=== PATIENT | male | born 1955 | race Caucasian/White ===

== ENCOUNTER → 2018-03-07 | Outpatient (CLI) | payer BC | END | disposition home or self-care (01) | LOC: SHCH 07:46 | PROVIDERS: ATTEND Internal Medicine Cardiovascular Disease | DX: R01.1 Cardiac murmur, unspecified (principal); I11.0 Hypertensive heart disease with heart failure; I50.9 Heart failure, unspecified; I25.10 Atherosclerotic heart disease of native coronary artery without angina pectoris | CPT/HCPCS: 93306 ==

== ENCOUNTER → 2018-05-29 | Outpatient (CLI) | payer BC | END | disposition home or self-care (01) | LOC: SHCH 10:55 | PROVIDERS: ATTEND Internal Medicine Cardiovascular Disease | DX: R09.89 Other specified symptoms and signs involving the circulatory and respiratory systems (principal) | CPT/HCPCS: 93880 ==

== ENCOUNTER 2019-12-30 11:43 | Inpatient (IN) | payer BC ==
[~2019-12-30] VITALS: Ht 177.8 cm; Wt 80.3 kg
[2019-12-30 12:43] LABS: BASOPHILS % (AUTO) 0.4 % (0.0-5.0); EOSINOPHILS % (AUTO) 1.6 % (0.0-8.0); HEMATOCRIT 30.6 % (42-54); LYMPHOCYTES % (AUTO) 7.2 % (21.0-51.0); MEAN CORPUSCULAR HGB CONC 31.4 g/dL (32.0-36.0); MONOCYTES % (AUTO) 15.7 % (3.0-13.0); NEUTROPHILS % (AUTO) 74.7 % (40.0-77.0); PLATELET COUNT (AUTO) 411 K/uL (130-400); RED BLOOD CELL COUNT(AUTO) 3.56 MIL/uL (4.50-6.20); RED CELL DISTRIBUTION WIDTH 16.8 % (11.0-15.5); WHITE BLOOD COUNT (AUTO) 6.8 K/uL (4.8-10.8)
[2019-12-30 12:57] LABS: ALBUMIN 2.1 g/dL (3.5-5.0); BILIRUBIN,TOTAL 0.4 mg/dL (0.2-1.0); CREATININE 2.7 mg/dL (0.5-1.5); INR 1.04 (0.85-1.15); PARTIAL THROMBOPLASTIN TIME 33.8 SEC (26.3-35.5); POTASSIUM 4.4 mmol/L (3.5-5.1); PROTHROMBIN TIME 11.2 SEC (9.6-11.6); TOTAL PROTEIN, SERUM 9.1 g/dL (6.0-8.3)
--- NOTE | 2019-12-30 16:38 | NUR ---
DCP: HOME WITH Sw spoke to pt's Adrianne Franco [phone]. Per works at [employer], is independent, drives, uses CPAP at night, no in home care services. PCP is Dr Oliverio Marie, and he uses [facility] for rx medications. Plan is home at ma Addendum: 12/30/19 at 1640 by KEVIN ELLISON SS Amended: Links added.
[2019-12-30] MEDS ORDERED: ONDANSETRON HCL 4 MG/2 ML VIAL IVP PRN (17:00)
[2019-12-30] MEDS ORDERED: HYDRALAZINE HCL 20 MG/ML VIAL IV PRN (17:00)
[2019-12-30] MEDS ORDERED: ACETAMINOPHEN 325 MG TAB PO PRN ×2 (17:00)
[2019-12-30] MEDS: METHYLPREDNISOLONE SOD SUCC 40MG/ML 1ML IVP SCH (17:30)
[2019-12-30] MEDS: HEPARIN SODIUM 5000UNIT/ML 1ML VIAL SQ SCH (17:30)
[2019-12-30] MEDS ORDERED: HEPARIN SODIUM 5000UNIT/ML 1ML VIAL ONE (18:17)
[2019-12-30] MEDS ORDERED: METHYLPREDNISOLONE SOD SUCC 40MG/ML 1ML ONE (18:17)
[2019-12-30 22:14] LABS: B-TYPE NATRIURETIC PEPTIDE 23 pg/mL (0-100)
[2019-12-31] MEDS: METHYLPREDNISOLONE SOD SUCC 40MG/ML 1ML IVP SCH ×4 (01:30→19:17)
[2019-12-31] MEDS ORDERED: METHYLPREDNISOLONE SOD SUCC 40MG/ML 1ML ONE ×2 (01:59→10:26)
[2019-12-31] MEDS: HEPARIN SODIUM 5000UNIT/ML 1ML VIAL SQ SCH ×3 (05:30→19:18)
[2019-12-31] MEDS ORDERED: HEPARIN SODIUM 5000UNIT/ML 1ML VIAL ONE (05:58)
[2019-12-31 06:21] LABS: BASOPHILS % (AUTO) 0.1 % (0.0-5.0); HEMATOCRIT 32.6 % (42-54); LYMPHOCYTES % (AUTO) 9.5 % (21.0-51.0); MEAN CORPUSCULAR HEMOGLOBIN 27.2 pg (27.0-33.0); MEAN CORPUSCULAR HGB CONC 31.6 g/dL (32.0-36.0); MEAN CORPUSCULAR VOLUME 86.2 fL (79-99); MONOCYTES % (AUTO) 2.2 % (3.0-13.0); NEUTROPHILS % (AUTO) 87.6 % (40.0-77.0); PLATELET COUNT (AUTO) 343 K/uL (130-400); RED BLOOD CELL COUNT(AUTO) 3.78 MIL/uL (4.50-6.20); RED CELL DISTRIBUTION WIDTH 16.7 % (11.0-15.5); WHITE BLOOD COUNT (AUTO) 7.2 K/uL (4.8-10.8)
[2019-12-31 06:29] LABS: CREATININE 2.4 mg/dL (0.5-1.5); POTASSIUM 5.4 mmol/L (3.5-5.1)
[2019-12-31] MEDS ORDERED: ENOXAPARIN SODIUM 30 MG/0.3 ML SQ SCH (09:00)
[2019-12-31] MEDS ORDERED: ENOXAPARIN SODIUM 30 MG/0.3 ML SQ ONE (09:22)
[2019-12-31 11:39] VITALS: BP 146/68
[2019-12-31] MEDS ORDERED: DOXA8TAB81 PO (12:32)
[2019-12-31] MEDS ORDERED: ASCO100031 PO (12:32)
[2019-12-31] MEDS ORDERED: TEST200V21 IM (12:32)
[2019-12-31] MEDS ORDERED: TADA5TAB13 PO (12:32)
[2019-12-31] MEDS ORDERED: HYDR12.54 PO (12:32)
[2019-12-31] MEDS ORDERED: LOSA100T58 PO (12:32)
[2019-12-31] MEDS ORDERED: HYDR-4154 PO (12:32)
[2019-12-31 16:00] VITALS: BP 133/61
--- NOTE | 2019-12-31 17:15 | NUR ---
RETURNED TO ROOM VIA W/C FROM ID. DENIES ANY C/O AT THIS TIME.
--- NOTE | 2019-12-31 17:39 | NUR ---
PT. STATES GETS NON-STOP HICCUPS WITH STEROIDS. PREVIOUSLY PRESCRIBED AND HICCUPS OCCURRED; PRESCRIBING MD AT THE TIME ADVISED HIM TO STOP STEROIDS.
--- NOTE | 2019-12-31 18:45 | NUR ---
RECEIVED CALL FROM DR. COCHRAN, INFORMED OF BLE US RESULTS AND MADE AWARE PT. UNABLE TO TOLERATED VQ SCAN; VERBALIZED UNDERSTANDING AND ORDERS RECEIVED.
[2019-12-31 19:44] VITALS: BP 131/80
[2019-12-31 23:18] VITALS: BP 145/81
[2020-01-01] VITALS (12 sets, daily range): BP systolic 133–157; BP diastolic 64–86
[2020-01-01 05:33] LABS: CRP QUANTITATIVE 154.5 mg/L (0.00-9.0)
[2020-01-01 09:03] LABS: BASOPHILS % (AUTO) 0.2 % (0.0-5.0); EOSINOPHILS % (AUTO) 0.2 % (0.0-8.0); HEMATOCRIT 29.9 % (42-54); LYMPHOCYTES % (AUTO) 8.9 % (21.0-51.0); MEAN CORPUSCULAR HEMOGLOBIN 26.9 pg (27.0-33.0); MEAN CORPUSCULAR HGB CONC 31.4 g/dL (32.0-36.0); MEAN CORPUSCULAR VOLUME 85.7 fL (79-99); MONOCYTES % (AUTO) 8.7 % (3.0-13.0); NEUTROPHILS % (AUTO) 81.4 % (40.0-77.0); PLATELET COUNT (AUTO) 515 K/uL (130-400); RED BLOOD CELL COUNT(AUTO) 3.49 MIL/uL (4.50-6.20); WHITE BLOOD COUNT (AUTO) 12.1 K/uL (4.8-10.8)
[2020-01-01 09:18] LABS: CREATININE 2.2 mg/dL (0.5-1.5); POTASSIUM 4.4 mmol/L (3.5-5.1)
[2020-01-01] MEDS: METHYLPREDNISOLONE SOD SUCC 40MG/ML 1ML IVP SCH ×2 (09:30→17:24)
--- NOTE | 2020-01-01 09:50 | NUR ---
U/S GD LT THORACENTESIS PROCEDURE PERFORMED BY DR Sekou AWAD. PUNCTURE SITE LT POSTERIOR BACK AND PATIENT TOLERATED PROCEDURE WELL. TOTAL REMOVED 2 LITERS OF BLOOD TINGED FLUID. END OF PROCEDURE AT 0935. CATHETER REMOVED AND DRESSING APPLIED. NO BLEEDING NOTED. POST CHEST X-RAY TAKEN AND READ BY DR Sekou AWAD. NO PNEUMOTHORAX SEEN. REPORT GIVEN TO Paulette FERRO RN AND PATIENT TRANSPORTED TO [address] [place] [address] AW/C AT 0950. AAO X3 WITH NO C/O PAIN. SPECIMEN SENT TO LAB.
--- NOTE | 2020-01-01 15:01 | NUR ---
RD NOTIFICATION Pt admitted with Pleural Effusion. Pending thoracentesis at time of screen. Pt resting at time of visit. Pt with renal non-dialysis diet order in place. Compromised renal function. 1 Kidney status. Recommend Nepro QD, as medically feasible. RD to continue to monitor. Please notify RD as additional nutrition concerns arise. Thank you. Addendum: 01/01/20 at [address] RD Amended: Links added.
--- NOTE | 2020-01-01 17:24 | NUR ---
SPOKE WITH PATIENT ABOUT GIVING HIM THE SOLUMEDROL AND HE SAID HE WOULD PREFER NOT TO TAKE IT AT THIS TIME DUE TO SEVERE HICCUPS THAT DOESN'T ALLOW HIM TO REST. HE CONTINUES TO HICCUP BUT STATES THAT ITS NOT BAD SINCE THEY STOPPED GIVING IT TO HIM THIS MORNING. HE ASKED IF WE COULD RE-EVALUATE THE NEED FOR THIS MEDICATION HIS PRIMARY M.D. TOLD HIM NOT TO TAKE IT DUE TO HIS REACTION TO [facility]ETHYL[facility]. HAS HAD THIS REACTION BEFORE AND STATES THAT WHEN HE WENT FOR HIS CT SCAN, HE WAS ABLE TO LAY FLAT AND HAS BEEN BREATHING MUCH BETTER SINCE THEY THORACENTESIS AND THE REMOVAL OF 2 LITERS OF FLUID. WILL HOLD THE SOLUMEDROL FOR NOW AND WILL ASK M.D. IF WE CAN DISCONTINUE. Addendum: 01/01/20 at 1729 by SUKI ELENA RN RN Amended: Links added.
[2020-01-01] MEDS: HEPARIN SODIUM 5000UNIT/ML 1ML VIAL SQ SCH (18:35)
[2020-01-01 19:48] LABS: APPEARANCE BODY FLUID BLOODY (CLEAR); COLOR,BODY FLUID ORANGE (LT YELLOW); SPECIMENTYPE,BODY FLUID THORACENTESIS; TOTAL VOLUME,BODY FLUID 2000 mL
[2020-01-01 19:49] LABS: BODY FLUID WBC 694 /cu. mm.
[2020-01-01 19:50] LABS: BODY FLUID RBC 2525 /cu. mm.
[2020-01-01 20:29] LABS: BF EOSINOPHIL 1 %; BF LYMPHOCYTE 1 %; BF MONOCYTE 3 %
[2020-01-02] MEDS: METHYLPREDNISOLONE SOD SUCC 40MG/ML 1ML IVP SCH ×3 (01:14→17:30)
[2020-01-02 03:59] LABS: BASOPHILS % (AUTO) 0.5 % (0.0-5.0); EOSINOPHILS % (AUTO) 0.9 % (0.0-8.0); HEMATOCRIT 31.3 % (42-54); LYMPHOCYTES % (AUTO) 10.8 % (21.0-51.0); MEAN CORPUSCULAR HEMOGLOBIN 27.5 pg (27.0-33.0); MEAN CORPUSCULAR HGB CONC 31.6 g/dL (32.0-36.0); MEAN CORPUSCULAR VOLUME 86.9 fL (79-99); MONOCYTES % (AUTO) 12.5 % (3.0-13.0); NEUTROPHILS % (AUTO) 74.8 % (40.0-77.0); PLATELET COUNT (AUTO) 520 K/uL (130-400); RED CELL DISTRIBUTION WIDTH 16.9 % (11.0-15.5); WHITE BLOOD COUNT (AUTO) 7.5 K/uL (4.8-10.8)
[2020-01-02 04:00] VITALS: BP 154/82
[2020-01-02 04:14] LABS: POTASSIUM 4.9 mmol/L (3.5-5.1)
[2020-01-02 04:15] LABS: CREATININE 2.1 mg/dL (0.5-1.5)
[2020-01-02 04:34] LABS: CRP QUANTITATIVE 99.1 mg/L (0.00-9.0)
[2020-01-02] MEDS: HEPARIN SODIUM 5000UNIT/ML 1ML VIAL SQ SCH ×2 (06:18→17:30)
[2020-01-02 08:00] VITALS: BP 145/74
[2020-01-02 12:00] VITALS: BP 152/78
[2020-01-02] MEDS ORDERED: AMOX-426 PO (14:32)
[2020-01-02 16:00] VITALS: BP 145/78
== END 2020-01-02 20:00 | disposition home or self-care (01) | DRG 189 ==
LOC: EDH 11:43 → EDHIP 14:12 → 4AH 12-31 11:39
PROVIDERS: ADMIT Hospitalist; ATTEND Hospitalist
PROC: 0W9B3ZZ Drainage of Left Pleural Cavity, Percutaneous Approach (ICD-10-PCS; principal; 2020-01-01)
DX: J96.01 Acute respiratory failure with hypoxia (principal); E43 Unspecified severe protein-calorie malnutrition; J18.9 Pneumonia, unspecified organism; J90 Pleural effusion, not elsewhere classified; N17.9 Acute kidney failure, unspecified; J98.11 Atelectasis; I10 Essential (primary) hypertension; Z20.828 Contact with and (suspected) exposure to other viral communicable diseases; Z68.25 Body mass index [BMI] 25.0-25.9, adult
CPT/HCPCS: 32555; 36415; 71045; 71250; 78582; 80048; 80053; 82465; 82550; 82728; 82948; 83615; 83690; 83880; 84145; 84157; 84484; 85025; 85378; 85610; 85730; 86140; 87071; 87205; 87635; 89051; 93005; 93306; 93356; 93970; A9540; A9558; G0378; J1644; J1650; J2920

== ENCOUNTER 2020-08-02 13:25 | Inpatient (IN) | payer BC ==
[~2020-08-02] VITALS: Ht 177.8 cm; Wt 86.5 kg
[~2020-08-02 13:25] MED LIST: AMOX-426 PO; ASCO100031 PO; DOXA8TAB81 PO; HYDR-4154 PO; HYDR12.54 PO; LOSA100T58 PO; TADA5TAB13 PO; TEST200V21 IM
[2020-08-02 13:54] LABS: BASOPHILS % (AUTO) 0.4 % (0.0-5.0); EOSINOPHILS % (AUTO) 0.1 % (0.0-8.0); HEMATOCRIT 42.2 % (42-54); LYMPHOCYTES % (AUTO) 2.7 % (21.0-51.0); MEAN CORPUSCULAR HEMOGLOBIN 29.8 pg (27.0-33.0); MEAN CORPUSCULAR HGB CONC 32.7 g/dL (32.0-36.0); MEAN CORPUSCULAR VOLUME 91.1 fL (79-99); MONOCYTES % (AUTO) 13.4 % (3.0-13.0); PLATELET COUNT (AUTO) 237 K/uL (130-400); RED BLOOD CELL COUNT(AUTO) 4.63 MIL/uL (4.50-6.20); RED CELL DISTRIBUTION WIDTH 14.6 % (11.0-15.5); WHITE BLOOD COUNT (AUTO) 11.2 K/uL (4.8-10.8)
[2020-08-02 14:06] LABS: INR 1.26 (0.85-1.15); PROTHROMBIN TIME 13.2 SEC (9.6-11.6)
[2020-08-02 14:07] LABS: CREATININE 2.3 mg/dL (0.5-1.5); PARTIAL THROMBOPLASTIN TIME 31.9 SEC (26.3-35.5); POTASSIUM 3.5 mmol/L (3.5-5.1)
[2020-08-02 14:12] LABS: BILIRUBIN,TOTAL 1.5 mg/dL (0.2-1.0); TOTAL PROTEIN, SERUM 6.7 g/dL (6.0-8.3)
[2020-08-02] MEDS ORDERED: MORPHINE 2 MG SYG IVP PRN (16:30)
[2020-08-02] MEDS ORDERED: ONDANSETRON 4MG INJ ONE (16:39)
[2020-08-02] MEDS ORDERED: MORPHINE 2 MG SYG ONE (16:39)
[2020-08-02] MEDS ORDERED: LORAZEPAM 0.5 MG TABLET PO PRN (16:45)
[2020-08-02] MEDS ORDERED: ACETAMINOPHEN 325 MG TAB PO PRN (16:45)
[2020-08-02] MEDS ORDERED: HYDROMORPHONE 0.5 MG SYG (0.5MG/0.5ML) IVP PRN (16:45)
[2020-08-02] MEDS: HYDRALAZINE 25MG TABLET PO SCH ×2 (17:00→21:00)
[2020-08-02] MEDS ORDERED: METOCLOPRAMIDE 10 MG/2 ML VIAL IVP SCH (18:00)
[2020-08-02] MEDS ORDERED: DiphenhydrAMINE HCL 50 MG/ML VIAL IV SCH (18:00)
[2020-08-02] MEDS ORDERED: METOCLOPRAMIDE 10 MG/2 ML VIAL ONE (18:27)
[2020-08-02] MEDS ORDERED: DiphenhydrAMINE HCL 50 MG/ML VIAL ONE (18:27)
[2020-08-02] MEDS: DOXAZOSIN MESYLATE 2 MG TABLET PO SCH (21:00)
[2020-08-02] MEDS ORDERED: HYDRALAZINE 25MG TABLET ONE (21:01)
[2020-08-02] MEDS ORDERED: HYDROMORPHONE 0.5 MG SYG (0.5MG/0.5ML) ONE (22:13)
[2020-08-02 22:35] LABS: APPEARANCE,URINE Cloudy (CLEAR); BILIRUBIN,URINE Negative (NEGATIVE); COLOR,URINE Yellow (YELLOW); GLUCOSE, URINE (UA) Negative (NEGATIVE); KETONES,URINE Negative (NEGATIVE); LEUKOCYTE ESTERASE ,URINE Negative (NEGATIVE); NITRATE,URINE Negative (NEGATIVE); OCCULT BLOOD,URINE Negative (NEGATIVE); PROTEIN,URINE >=1000 mg/dL (NEGATIVE)
[2020-08-02 22:51] LABS: AMORPHOUS SEDIMENT,UR Many /LPF (None Seen); BACTERIA,URINE None Seen /HPF (None Seen); MUCUS,URINE Few LPF (None Seen); RBC,URINE None Seen /HPF (0-1); SQUAMOUS EPITHELIAL CELL,UR Few /HPF (0-2); WBC,URINE None Seen /HPF (0-1)
[2020-08-03] MEDS ORDERED: HYDROMORPHONE 0.5 MG SYG (0.5MG/0.5ML) ONE (03:11)
[2020-08-03 03:50] VITALS: BP 140/67
[2020-08-03 05:31] LABS: HEMATOCRIT 37.6 % (42-54); MEAN CORPUSCULAR HEMOGLOBIN 29.4 pg (27.0-33.0); MEAN CORPUSCULAR HGB CONC 32.2 g/dL (32.0-36.0); MEAN CORPUSCULAR VOLUME 91.3 fL (79-99); PLATELET COUNT (AUTO) 242 K/uL (130-400); RED BLOOD CELL COUNT(AUTO) 4.12 MIL/uL (4.50-6.20); RED CELL DISTRIBUTION WIDTH 14.6 % (11.0-15.5); WHITE BLOOD COUNT (AUTO) 9.2 K/uL (4.8-10.8)
[2020-08-03 06:06] LABS: CREATININE 2.7 mg/dL (0.5-1.5); MAGNESIUM 1.6 mg/dL (1.80-2.40); POTASSIUM 3.4 mmol/L (3.5-5.1); URIC ACID 5.9 mg/dL (2.6-7.2)
[2020-08-03 06:43] LABS: CRP QUANTITATIVE 215.8 mg/L (0.00-9.0)
[2020-08-03 06:58] LABS: BASOPHILS % (MANUAL) 1 % (0-2); EOSINOPHILS % (MANUAL) 1 % (1-6); LYMPHOCYTES % (MANUAL) 6 % (22-44); MAN.DIFF COMMENT-IMPRESSION MANUAL DIFFERENTIAL; MONOCYTES % (MANUAL) 12 % (2-9); PLATELET MORPHOLOGY COMMENT ADEQUATE; SEGMENTED NEUTROPHILS % 80 % (40-70)
[2020-08-03 07:30] VITALS: BP 137/68
[2020-08-03] MEDS ORDERED: IBRU420T PO (08:02)
[2020-08-03] MEDS ORDERED: DOXA8TAB81 PO (08:06)
[2020-08-03] MEDS ORDERED: LORA2ORA5 PO (08:06)
[2020-08-03] MEDS ORDERED: FURO20TA4 PO (08:06)
[2020-08-03] MEDS: CEFTRIAXONE 1G VIAL IVP SCH (09:18)
[2020-08-03] MEDS: HYDRALAZINE 25MG TABLET PO SCH ×3 (09:18→22:53)
[2020-08-03] MEDS: DOXYCYCLINE HYCLATE 100 MG TABLET PO SCH ×2 (09:18→22:53)
[2020-08-03] MEDS ORDERED: POTASSIUM CHLORIDE 10% ELIXIR 20 MEQ/15 ML UDCUP PO PRN (10:30)
[2020-08-03] MEDS ORDERED: LIDOCAINE HCL-MPF 1% 2ML VIAL IV PRN ×2 (10:30→12:15)
[2020-08-03] MEDS ORDERED: POTASSIUM CHLORIDE 20MEQ/100ML 100 ML IV PRN (10:30)
[2020-08-03] MEDS ORDERED: KCL 20 MEQ ERTAB PO PRN ×2 (10:30→12:15)
[2020-08-03] MEDS ORDERED: MAGNESIUM 2GM PREMIX 50ML 50 ML IV SCH (10:30)
[2020-08-03 11:00] VITALS: BP 121/67
[2020-08-03] MEDS ORDERED: HYDROMORPHONE 0.5 MG SYG (0.5MG/0.5ML) IVP PRN (12:00)
[2020-08-03] MEDS ORDERED: POTASSIUM CHLORIDE 10MEQ/100ML 100 ML IV PRN (12:15)
[2020-08-03] MEDS: POTASSIUM CHLORIDE 10% ELIXIR 20 MEQ/15 ML UDCUP PO PRN ×2 (13:32→17:36)
[2020-08-03] MEDS: LACTATED RINGERS 1000ML 1,000 ML IV SCH (13:35)
[2020-08-03 16:00] VITALS: BP 116/64
[2020-08-03] MEDS ORDERED: MORPHINE 2 MG SYG IVP PRN (16:45)
[2020-08-03 20:02] VITALS: BP 143/66
[2020-08-03] MEDS: DOXAZOSIN MESYLATE 2 MG TABLET PO SCH (22:53)
[2020-08-04 00:15] VITALS: BP 130/66
[2020-08-04] MEDS: LACTATED RINGERS 1000ML 1,000 ML IV SCH (04:09)
[2020-08-04 04:40] VITALS: BP 140/70
[2020-08-04 05:14] LABS: BASOPHILS % (AUTO) 0.4 % (0.0-5.0); EOSINOPHILS % (AUTO) 0.7 % (0.0-8.0); HEMATOCRIT 37.1 % (42-54); LYMPHOCYTES % (AUTO) 2.3 % (21.0-51.0); MEAN CORPUSCULAR HEMOGLOBIN 29.4 pg (27.0-33.0); MEAN CORPUSCULAR HGB CONC 32.6 g/dL (32.0-36.0); MONOCYTES % (AUTO) 21.3 % (3.0-13.0); NEUTROPHILS % (AUTO) 74.8 % (40.0-77.0); PLATELET COUNT (AUTO) 257 K/uL (130-400); RED BLOOD CELL COUNT(AUTO) 4.12 MIL/uL (4.50-6.20); RED CELL DISTRIBUTION WIDTH 14.2 % (11.0-15.5); WHITE BLOOD COUNT (AUTO) 8.4 K/uL (4.8-10.8)
[2020-08-04 05:42] LABS: CREATININE 2.5 mg/dL (0.5-1.5); MAGNESIUM 2.2 mg/dL (1.80-2.40); PHOSPHORUS 4.1 mg/dL (2.5-4.9); POTASSIUM 3.3 mmol/L (3.5-5.1)
[2020-08-04 05:44] LABS: INR 1.18 (0.85-1.15); PROTHROMBIN TIME 12.4 SEC (9.6-11.6)
[2020-08-04 05:45] LABS: PARTIAL THROMBOPLASTIN TIME 34.8 SEC (26.3-35.5)
[2020-08-04] MEDS: POTASSIUM CHLORIDE 10% ELIXIR 20 MEQ/15 ML UDCUP PO PRN (06:11)
[2020-08-04 08:00] VITALS: BP 143/77
[2020-08-04] MEDS ORDERED: VITAMIN D 1000 UNIT PO SCH (09:00)
[2020-08-04] MEDS: DOXYCYCLINE HYCLATE 100 MG TABLET PO SCH (11:42)
[2020-08-04] MEDS: CEFTRIAXONE 1G VIAL IVP SCH (11:42)
[2020-08-04] MEDS: HYDRALAZINE 25MG TABLET PO SCH ×2 (11:43→11:49)
[2020-08-04 12:00] VITALS: BP 138/60
[2020-08-04 13:23] LABS: APPEARANCE BODY FLUID BLOODY (CLEAR); COLOR,BODY FLUID RED (LT YELLOW); SPECIMENTYPE,BODY FLUID PLEURAL
[2020-08-04 13:24] LABS: TOTAL VOLUME,BODY FLUID 1021.5 mL
[2020-08-04 13:27] LABS: BODY FLUID WBC 375 /cu. mm.
[2020-08-04 13:28] LABS: BODY FLUID RBC 79500 /cu. mm.
[2020-08-04 13:37] LABS: BF LYMPHOCYTE 83 %; BF MONOCYTE 9 %
== END 2020-08-04 17:30 | disposition home or self-care (01) | DRG 103 ==
LOC: EDH 13:25 → EDHIP 16:27 → 4CH 08-03 03:22
PROVIDERS: ADMIT Internal Medicine; ATTEND Internal Medicine
PROC: 0W9B3ZZ Drainage of Left Pleural Cavity, Percutaneous Approach (ICD-10-PCS; principal; 2020-08-04)
DX: R51.9 Headache, unspecified (principal); N17.9 Acute kidney failure, unspecified; J90 Pleural effusion, not elsewhere classified; E87.1 Hypo-osmolality and hyponatremia; D84.821 Immunodeficiency due to drugs; E87.6 Hypokalemia; N18.9 Chronic kidney disease, unspecified; I16.0 Hypertensive urgency; C88.0 Waldenstrom macroglobulinemia; E78.5 Hyperlipidemia, unspecified; G62.9 Polyneuropathy, unspecified; I12.9 Hypertensive chronic kidney disease with stage 1 through stage 4 chronic kidney disease, or unspecified chronic kidney disease; M21.332 Wrist drop, left wrist; T45.1X5A Adverse effect of antineoplastic and immunosuppressive drugs, initial encounter; M21.331 Wrist drop, right wrist; F40.240 Claustrophobia; Z20.822 Contact with and (suspected) exposure to COVID-19; Z90.5 Acquired absence of kidney; Z92.21 Personal history of antineoplastic chemotherapy; Z82.49 Family history of ischemic heart disease and other diseases of the circulatory system; Z80.9 Family history of malignant neoplasm, unspecified; Y92.89 Other specified places as the place of occurrence of the external cause
CPT/HCPCS: 32554; 36415; 70450; 70551; 71045; 71250; 76770; 80048; 80053; 81001; 82306; 82550; 82945; 83605; 83615; 83735; 83986; 84100; 84145; 84157; 84484; 84550; 85025; 85610; 85651; 85730; 86140; 87040; 87071; 87116; 87205; 87206; 87426; 87804; 89051; 93005; 93306; 93356; C1729; G0378; J0696; J1170; J1200; J2405; J2765; J3475; J7120; U0003

== ENCOUNTER → 2020-08-14 | Outpatient (CLI) | payer BC ==
[~2020-08-14] MED LIST changes: -AMOX-426 PO; -ASCO100031 PO; -HYDR12.54 PO; +LORA2ORA5 PO; -LOSA100T58 PO; -TADA5TAB13 PO; -TEST200V21 IM
[2020-08-14 09:35] LABS: APPEARANCE,URINE Clear (CLEAR); BILIRUBIN,URINE Negative (NEGATIVE); COLOR,URINE Yellow (YELLOW); GLUCOSE, URINE (UA) TRACE mg/dL (NEGATIVE); KETONES,URINE Negative (NEGATIVE); LEUKOCYTE ESTERASE ,URINE Trace (NEGATIVE); NITRATE,URINE Negative (NEGATIVE); OCCULT BLOOD,URINE Negative (NEGATIVE); PROTEIN,URINE 300 mg/dL (NEGATIVE)
[2020-08-14 09:49] LABS: BACTERIA,URINE None Seen /HPF (None Seen); RBC,URINE 0-1 /HPF (0-1); SQUAMOUS EPITHELIAL CELL,UR 0-2 /HPF (0-2); WBC,URINE 0-1 /HPF (0-1)
== END | disposition home or self-care (01) ==
LOC: RAH 09:15
PROVIDERS: ATTEND Internal Medicine Critical Care Medicine
DX: K76.0 Fatty (change of) liver, not elsewhere classified (principal); R16.0 Hepatomegaly, not elsewhere classified; E88.09 Other disorders of plasma-protein metabolism, not elsewhere classified; N18.9 Chronic kidney disease, unspecified
CPT/HCPCS: 76700; 81001

== ENCOUNTER 2021-06-18 09:31 | Inpatient (IN) | payer BC ==
[~2021-06-18] VITALS: Ht 177.8 cm; Wt 72.6 kg
[2021-06-18 10:26] LABS: BASOPHILS % (AUTO) 0.5 % (0.0-5.0); EOSINOPHILS % (AUTO) 0.9 % (0.0-8.0); HEMATOCRIT 43.3 % (42-54); MEAN CORPUSCULAR HEMOGLOBIN 27.3 pg (27.0-33.0); MEAN CORPUSCULAR HGB CONC 30.7 g/dL (32.0-36.0); MEAN CORPUSCULAR VOLUME 88.7 fL (79-99); MONOCYTES % (AUTO) 9.3 % (3.0-13.0); NEUTROPHILS % (AUTO) 83.9 % (40.0-77.0); PLATELET COUNT (AUTO) 337 K/uL (130-400); RED BLOOD CELL COUNT(AUTO) 4.88 MIL/uL (4.50-6.20); RED CELL DISTRIBUTION WIDTH 16.3 % (11.0-15.5)
[2021-06-18] MEDS ORDERED: MORPHINE 4 MG SYG IVP ONE (10:30)
[2021-06-18] MEDS ORDERED: ONDANSETRON 4MG INJ IVP ONE (10:30)
[2021-06-18 10:39] LABS: CREATININE 1.4 mg/dL (0.5-1.5); POTASSIUM 4.5 mmol/L (3.5-5.1)
[2021-06-18 10:44] LABS: ALBUMIN 2.6 g/dL (3.5-5.0); BILIRUBIN,TOTAL 0.8 mg/dL (0.2-1.0)
[2021-06-18] MEDS ORDERED: 0.9%NACL 1000ML 1,000 ML IV ONE (12:00)
[2021-06-18] MEDS ORDERED: HYDRALAZINE 20MG/ML VIAL IV PRN (13:00)
[2021-06-18] MEDS ORDERED: ONDANSETRON 4MG INJ IV PRN (13:00)
[2021-06-18] MEDS ORDERED: ACETAMINOPHEN 325 MG TAB PO PRN ×2 (13:00)
[2021-06-18 13:22] LABS: APPEARANCE,URINE Clear (CLEAR); BILIRUBIN,URINE Negative (NEGATIVE); COLOR,URINE Dark Yellow (YELLOW); GLUCOSE, URINE (UA) Negative (NEGATIVE); KETONES,URINE Negative (NEGATIVE); LEUKOCYTE ESTERASE ,URINE Trace (NEGATIVE); NITRATE,URINE Negative (NEGATIVE); OCCULT BLOOD,URINE Negative (NEGATIVE); PROTEIN,URINE 300 mg/dL (NEGATIVE)
[2021-06-18 13:38] LABS: INR 1.06 (0.85-1.15); PROTHROMBIN TIME 11.5 SEC (9.6-11.6)
[2021-06-18 13:40] LABS: PARTIAL THROMBOPLASTIN TIME 32.7 SEC (26.3-35.5)
[2021-06-18 13:41] LABS: BACTERIA,URINE Few /HPF (None Seen); RBC,URINE None Seen /HPF (0-1); SQUAMOUS EPITHELIAL CELL,UR 0-2 /HPF (0-2); WBC,URINE 0-1 /HPF (0-1)
[2021-06-18] MEDS: 0.9%NACL 1000ML 1,000 ML IV SCH ×2 (14:47→21:42)
[2021-06-18] MEDS: ZOSYN 3.375GM+NS 50ML 50 ML IV SCH ×2 (15:10→21:42)
[2021-06-18] MEDS ORDERED: KETOROLAC 15MG/ML VIAL (15MG/ML) IV ONE (16:00)
[2021-06-18 20:39] VITALS: BP 147/85
[2021-06-18] MEDS: FAMOTIDINE 20MG VIAL IV SCH (21:42)
[2021-06-18] MEDS ORDERED: TEST100V11 IM (22:38)
[2021-06-18] MEDS ORDERED: POTA-10 PO (22:38)
[2021-06-18] MEDS ORDERED: HYDR-4153 PO (22:38)
[2021-06-18] MEDS ORDERED: DOXA8TAB81 PO (22:38)
[2021-06-18] MEDS ORDERED: TORS20TA4 PO (22:38)
[2021-06-18 23:51] VITALS: BP 133/76
[2021-06-19 03:54] VITALS: BP 137/81
[2021-06-19] MEDS: ZOSYN 3.375GM+NS 50ML 50 ML IV SCH ×3 (04:04→20:58)
[2021-06-19 06:26] LABS: BASOPHILS % (AUTO) 0.5 % (0.0-5.0); HEMATOCRIT 39.4 % (42-54); LYMPHOCYTES % (AUTO) 6.1 % (21.0-51.0); MEAN CORPUSCULAR HEMOGLOBIN 27.6 pg (27.0-33.0); MEAN CORPUSCULAR HGB CONC 30.7 g/dL (32.0-36.0); MONOCYTES % (AUTO) 8.6 % (3.0-13.0); NEUTROPHILS % (AUTO) 82.4 % (40.0-77.0); PLATELET COUNT (AUTO) 332 K/uL (130-400); RED BLOOD CELL COUNT(AUTO) 4.38 MIL/uL (4.50-6.20); RED CELL DISTRIBUTION WIDTH 16.6 % (11.0-15.5)
[2021-06-19 06:41] LABS: ALBUMIN 2.2 g/dL (3.5-5.0); BILIRUBIN,TOTAL 0.7 mg/dL (0.2-1.0); CREATININE 1.6 mg/dL (0.5-1.5); POTASSIUM 4.7 mmol/L (3.5-5.1); TOTAL PROTEIN, SERUM 7.1 g/dL (6.0-8.3)
[2021-06-19 07:00] VITALS: BP 151/77
[2021-06-19] MEDS: FAMOTIDINE 20MG VIAL IV SCH (08:55)
[2021-06-19] MEDS: 0.9%NACL 1000ML 1,000 ML IV SCH ×2 (08:55→20:58)
[2021-06-19 11:00] VITALS: BP 144/78
[2021-06-19] MEDS ORDERED: PANTOPRAZOLE 40 MG/VIAL IVP SCH (13:30)
[2021-06-19 16:00] VITALS: BP 144/77
[2021-06-19] MEDS: PANTOPRAZOLE 40 MG/VIAL IVP SCH ×2 (16:54→21:01)
[2021-06-19 19:15] VITALS: BP 147/84
[2021-06-19] MEDS ORDERED: 0.9%NACL 50ML 50 ML IV ONE (20:48)
[2021-06-19 23:42] VITALS: BP 146/78
[2021-06-20 03:55] VITALS: BP 150/79
[2021-06-20] MEDS: 0.9%NACL 1000ML 1,000 ML IV SCH ×2 (05:36→17:04)
[2021-06-20] MEDS: ZOSYN 3.375GM+NS 50ML 50 ML IV SCH ×3 (05:36→21:25)
[2021-06-20 06:41] LABS: BASOPHILS % (AUTO) 0.8 % (0.0-5.0); HEMATOCRIT 40.7 % (42-54); LYMPHOCYTES % (AUTO) 6.2 % (21.0-51.0); MEAN CORPUSCULAR HEMOGLOBIN 27.4 pg (27.0-33.0); MEAN CORPUSCULAR HGB CONC 29.7 g/dL (32.0-36.0); MEAN CORPUSCULAR VOLUME 92.1 fL (79-99); MONOCYTES % (AUTO) 8.8 % (3.0-13.0); PLATELET COUNT (AUTO) 311 K/uL (130-400); RED BLOOD CELL COUNT(AUTO) 4.42 MIL/uL (4.50-6.20); RED CELL DISTRIBUTION WIDTH 16.4 % (11.0-15.5); WHITE BLOOD COUNT (AUTO) 8.6 K/uL (4.8-10.8)
[2021-06-20 06:51] LABS: CREATININE 1.7 mg/dL (0.5-1.5); POTASSIUM 4.5 mmol/L (3.5-5.1)
[2021-06-20 08:00] VITALS: BP 139/75
[2021-06-20] MEDS: PANTOPRAZOLE 40 MG/VIAL IVP SCH ×2 (08:52→21:25)
[2021-06-20 11:00] VITALS: BP 149/83
[2021-06-20] MEDS ORDERED: 0.9%NACL 50ML 50 ML IV ONE (12:47)
[2021-06-20] MEDS: LACTULOSE 20 GM/30 ML UDCUP ONE ×2 (13:55→14:00)
[2021-06-20] MEDS ORDERED: BISACODYL 10 MG SUPP.RECT RC ONE (14:00)
[2021-06-20] MEDS: LACTULOSE 20 GM/30 ML UDCUP PO SCH ×2 (14:30→21:25)
[2021-06-20 16:00] VITALS: BP 136/79
[2021-06-20 19:17] VITALS: BP 143/88
[2021-06-20] MEDS ORDERED: LACTULOSE 20 GM/30 ML UDCUP PO SCH (21:00)
[2021-06-20 23:51] VITALS: BP 132/88
[2021-06-21 03:51] VITALS: BP 147/86
[2021-06-21] MEDS: ZOSYN 3.375GM+NS 50ML 50 ML IV SCH ×3 (05:26→21:22)
[2021-06-21 06:17] LABS: BASOPHILS % (AUTO) 0.8 % (0.0-5.0); EOSINOPHILS % (AUTO) 2.9 % (0.0-8.0); LYMPHOCYTES % (AUTO) 5.3 % (21.0-51.0); MEAN CORPUSCULAR HEMOGLOBIN 27.4 pg (27.0-33.0); MEAN CORPUSCULAR VOLUME 88.3 fL (79-99); MONOCYTES % (AUTO) 10.1 % (3.0-13.0); NEUTROPHILS % (AUTO) 80.6 % (40.0-77.0); PLATELET COUNT (AUTO) 348 K/uL (130-400); RED BLOOD CELL COUNT(AUTO) 4.53 MIL/uL (4.50-6.20); RED CELL DISTRIBUTION WIDTH 16.1 % (11.0-15.5); WHITE BLOOD COUNT (AUTO) 8.7 K/uL (4.8-10.8)
[2021-06-21 06:49] LABS: CREATININE 1.7 mg/dL (0.5-1.5)
[2021-06-21 08:00] VITALS: BP 138/67
[2021-06-21] MEDS: PANTOPRAZOLE 40 MG/VIAL IVP SCH ×2 (09:00→21:22)
[2021-06-21] MEDS: LACTULOSE 20 GM/30 ML UDCUP PO SCH ×3 (10:43→21:22)
[2021-06-21 12:00] VITALS: BP 152/81
[2021-06-21] MEDS: 0.9%NACL 1000ML 1,000 ML IV SCH (13:16)
[2021-06-21 16:00] VITALS: BP 153/85
[2021-06-21] MEDS ORDERED: 0.9%NACL 50ML 50 ML IV ONE (20:16)
[2021-06-21 20:51] VITALS: BP 161/91
[2021-06-21] MEDS: HYDRALAZINE 25MG TABLET PO SCH (21:22)
[2021-06-21 23:45] VITALS: BP 149/89
[2021-06-22] MEDS ORDERED: 0.9%NACL 50ML 50 ML IV ONE (04:52)
[2021-06-22] MEDS: ZOSYN 3.375GM+NS 50ML 50 ML IV SCH ×3 (05:27→21:20)
[2021-06-22 05:35] VITALS: BP 158/90
[2021-06-22 06:01] LABS: BASOPHILS % (AUTO) 0.9 % (0.0-5.0); HEMATOCRIT 44.9 % (42-54); LYMPHOCYTES % (AUTO) 7.4 % (21.0-51.0); MEAN CORPUSCULAR HEMOGLOBIN 27.5 pg (27.0-33.0); MEAN CORPUSCULAR VOLUME 88.9 fL (79-99); MONOCYTES % (AUTO) 10.5 % (3.0-13.0); NEUTROPHILS % (AUTO) 77.7 % (40.0-77.0); PLATELET COUNT (AUTO) 358 K/uL (130-400); RED BLOOD CELL COUNT(AUTO) 5.05 MIL/uL (4.50-6.20); RED CELL DISTRIBUTION WIDTH 15.9 % (11.0-15.5); WHITE BLOOD COUNT (AUTO) 8.5 K/uL (4.8-10.8)
[2021-06-22 06:15] LABS: CREATININE 1.8 mg/dL (0.5-1.5); MAGNESIUM 2.1 mg/dL (1.80-2.40); PHOSPHORUS 3.4 mg/dL (2.5-4.9); POTASSIUM 4.1 mmol/L (3.5-5.1)
[2021-06-22 08:00] VITALS: BP 143/79
[2021-06-22] MEDS: HYDRALAZINE 25MG TABLET PO SCH ×2 (08:36→21:20)
[2021-06-22] MEDS: PANTOPRAZOLE 40 MG/VIAL IVP SCH ×2 (08:36→21:20)
[2021-06-22] MEDS: LACTULOSE 20 GM/30 ML UDCUP PO SCH ×2 (08:46→21:00)
[2021-06-22 12:01] VITALS: BP 139/80
[2021-06-22 16:00] VITALS: BP 129/77
[2021-06-22 20:28] VITALS: BP 136/79
[2021-06-23 00:28] VITALS: BP 135/83
[2021-06-23 04:28] VITALS: BP 155/88
[2021-06-23 04:49] LABS: BASOPHILS % (AUTO) 0.7 % (0.0-5.0); EOSINOPHILS % (AUTO) 2.5 % (0.0-8.0); HEMATOCRIT 39.6 % (42-54); MEAN CORPUSCULAR HEMOGLOBIN 27.8 pg (27.0-33.0); MEAN CORPUSCULAR HGB CONC 31.8 g/dL (32.0-36.0); MEAN CORPUSCULAR VOLUME 87.2 fL (79-99); MONOCYTES % (AUTO) 13.6 % (3.0-13.0); NEUTROPHILS % (AUTO) 75.8 % (40.0-77.0); PLATELET COUNT (AUTO) 334 K/uL (130-400); RED BLOOD CELL COUNT(AUTO) 4.54 MIL/uL (4.50-6.20); WHITE BLOOD COUNT (AUTO) 7.7 K/uL (4.8-10.8)
[2021-06-23] MEDS: ZOSYN 3.375GM+NS 50ML 50 ML IV SCH ×3 (04:54→21:39)
[2021-06-23 05:02] LABS: CREATININE 1.6 mg/dL (0.5-1.5)
[2021-06-23 08:00] VITALS: BP 155/88
[2021-06-23] MEDS: PANTOPRAZOLE 40 MG/VIAL IVP SCH ×2 (09:36→21:39)
[2021-06-23] MEDS: HYDRALAZINE 25MG TABLET PO SCH ×2 (09:37→21:39)
[2021-06-23] MEDS: LACTULOSE 20 GM/30 ML UDCUP PO SCH ×2 (09:37→21:38)
[2021-06-23 12:00] VITALS: BP 152/87
[2021-06-23 16:00] VITALS: BP 146/83
[2021-06-23 20:00] VITALS: BP 139/76
[2021-06-24] VITALS (7 sets, daily range): BP systolic 135–158; BP diastolic 64–80
[2021-06-24 03:38] LABS: LYMPHOCYTES % (AUTO) 8.6 % (21.0-51.0); MEAN CORPUSCULAR HEMOGLOBIN 27.8 pg (27.0-33.0); MEAN CORPUSCULAR VOLUME 89.7 fL (79-99); MONOCYTES % (AUTO) 13.3 % (3.0-13.0); PLATELET COUNT (AUTO) 265 K/uL (130-400); RED BLOOD CELL COUNT(AUTO) 4.35 MIL/uL (4.50-6.20); WHITE BLOOD COUNT (AUTO) 6.9 K/uL (4.8-10.8)
[2021-06-24 03:48] LABS: CREATININE 1.6 mg/dL (0.5-1.5); POTASSIUM 3.8 mmol/L (3.5-5.1)
[2021-06-24] MEDS: ZOSYN 3.375GM+NS 50ML 50 ML IV SCH ×2 (05:56→20:58)
[2021-06-24] MEDS: LACTULOSE 20 GM/30 ML UDCUP PO SCH ×2 (10:57→20:58)
[2021-06-24] MEDS: HYDRALAZINE 25MG TABLET PO SCH ×2 (10:58→20:59)
[2021-06-24] MEDS: PANTOPRAZOLE 40 MG/VIAL IVP SCH ×2 (10:58→20:59)
[2021-06-25 04:00] VITALS: BP 140/69
[2021-06-25] MEDS: ZOSYN 3.375GM+NS 50ML 50 ML IV SCH (04:42)
[2021-06-25 07:34] VITALS: BP 150/82
[2021-06-25] MEDS: LACTULOSE 20 GM/30 ML UDCUP PO SCH ×2 (10:16→21:35)
[2021-06-25] MEDS: PANTOPRAZOLE 40 MG/VIAL IVP SCH ×2 (10:16→21:35)
[2021-06-25] MEDS: HYDRALAZINE 25MG TABLET PO SCH ×2 (10:16→21:35)
[2021-06-25 11:52] VITALS: BP 147/79
[2021-06-25 16:08] VITALS: BP 164/83
[2021-06-25 19:00] VITALS: BP 150/62
[2021-06-26] VITALS: BP 162/78
[2021-06-26 04:00] VITALS: BP 147/87
[2021-06-26 07:54] VITALS: BP 171/81
[2021-06-26] MEDS: HYDRALAZINE 25MG TABLET PO SCH ×2 (08:34→21:07)
[2021-06-26] MEDS: PANTOPRAZOLE 40 MG/VIAL IVP SCH ×2 (08:34→21:07)
[2021-06-26] MEDS: LACTULOSE 20 GM/30 ML UDCUP PO SCH ×2 (08:38→21:08)
[2021-06-26] MEDS ORDERED: CLONAZEPAM 1MG TAB PO SCH (11:30)
[2021-06-26] MEDS ORDERED: FUROSEMIDE 40MG VIAL IV SCH (11:30)
[2021-06-26] MEDS ORDERED: LORAZEPAM 1 MG TABLET PO SCH (11:37)
[2021-06-26 12:13] VITALS: BP 141/75
[2021-06-26] MEDS ORDERED: LORAZEPAM 1 MG TABLET PO PRN (15:00)
[2021-06-26 16:00] VITALS: BP 156/81
[2021-06-26 19:00] VITALS: BP 155/77
[2021-06-27] VITALS (8 sets, daily range): BP systolic 123–161; BP diastolic 68–94
[2021-06-27 05:12] LABS: BASOPHILS % (AUTO) 0.9 % (0.0-5.0); EOSINOPHILS % (AUTO) 2.9 % (0.0-8.0); HEMATOCRIT 40.6 % (42-54); MEAN CORPUSCULAR HEMOGLOBIN 27.1 pg (27.0-33.0); MEAN CORPUSCULAR HGB CONC 30.5 g/dL (32.0-36.0); MEAN CORPUSCULAR VOLUME 88.6 fL (79-99); MONOCYTES % (AUTO) 13.6 % (3.0-13.0); NEUTROPHILS % (AUTO) 74.4 % (40.0-77.0); PLATELET COUNT (AUTO) 346 K/uL (130-400); RED BLOOD CELL COUNT(AUTO) 4.58 MIL/uL (4.50-6.20); RED CELL DISTRIBUTION WIDTH 16.2 % (11.0-15.5); WHITE BLOOD COUNT (AUTO) 6.5 K/uL (4.8-10.8)
[2021-06-27 05:19] LABS: CREATININE 1.4 mg/dL (0.5-1.5); POTASSIUM 3.8 mmol/L (3.5-5.1)
[2021-06-27 05:41] LABS: B-TYPE NATRIURETIC PEPTIDE 1310 pg/mL (0-100)
[2021-06-27] MEDS: LACTULOSE 20 GM/30 ML UDCUP PO SCH ×2 (09:00→20:38)
[2021-06-27] MEDS: HYDRALAZINE 25MG TABLET PO SCH ×2 (09:50→20:37)
[2021-06-27] MEDS: PANTOPRAZOLE 40 MG/VIAL IVP SCH ×2 (09:50→20:36)
[2021-06-27] MEDS ORDERED: LORAZEPAM 1 MG TABLET PO PRN (10:30)
[2021-06-27] MEDS ORDERED: CLONAZEPAM 1MG TAB PO PRN (10:30)
[2021-06-27 12:50] LABS: ALBUMIN,BODY FLUID 1.7 g/dL; GLUCOSE,BODY FLUID 99 mg/dL (1-40)
[2021-06-27 14:14] LABS: APPEARANCE BODY FLUID SLIGHTLY CLOUDY (CLEAR); BODY FLUID RBC 475 /cu. mm.; BODY FLUID WBC 267 /cu. mm.; COLOR,BODY FLUID YELLOW (LT YELLOW); SPECIMENTYPE,BODY FLUID THORACENTESIS; TOTAL VOLUME,BODY FLUID 1800 mL
[2021-06-27 14:32] LABS: BF EOSINOPHIL 31 %; BF LYMPHOCYTE 54 %; BF MONOCYTE 9 %
[2021-06-27 14:35] LABS: PH, BODY FLUID 8
[2021-06-28 04:16] VITALS: BP 142/79
[2021-06-28 04:34] LABS: BASOPHILS % (AUTO) 1.3 % (0.0-5.0); EOSINOPHILS % (AUTO) 3.4 % (0.0-8.0); HEMATOCRIT 37.8 % (42-54); LYMPHOCYTES % (AUTO) 9.2 % (21.0-51.0); MEAN CORPUSCULAR HEMOGLOBIN 27.4 pg (27.0-33.0); MEAN CORPUSCULAR HGB CONC 31.2 g/dL (32.0-36.0); MEAN CORPUSCULAR VOLUME 87.9 fL (79-99); MONOCYTES % (AUTO) 16.1 % (3.0-13.0); NEUTROPHILS % (AUTO) 69.4 % (40.0-77.0); PLATELET COUNT (AUTO) 327 K/uL (130-400); RED CELL DISTRIBUTION WIDTH 16.1 % (11.0-15.5); WHITE BLOOD COUNT (AUTO) 7.2 K/uL (4.8-10.8)
[2021-06-28 04:57] LABS: ALBUMIN 1.9 g/dL (3.5-5.0); BILIRUBIN,TOTAL 0.5 mg/dL (0.2-1.0); CREATININE 1.4 mg/dL (0.5-1.5); TOTAL PROTEIN, SERUM 6.6 g/dL (6.0-8.3)
[2021-06-28 07:40] VITALS: BP 147/93
[2021-06-28] MEDS: PANTOPRAZOLE 40 MG/VIAL IVP SCH (08:47)
[2021-06-28] MEDS: HYDRALAZINE 25MG TABLET PO SCH (08:48)
[2021-06-28] MEDS: LACTULOSE 20 GM/30 ML UDCUP PO SCH (09:00)
[2021-06-28 11:40] VITALS: BP 159/89
[2021-06-28 15:40] VITALS: BP 157/83
[2021-06-28] MEDS ORDERED: LACT10SO9 PO (15:44)
[2021-06-28 16:55] VITALS: BP 132/79
[2021-06-28] MEDS ORDERED: DOXAZOSIN MESYLATE 2 MG TABLET PO SCH (16:55)
== END 2021-06-28 17:30 | disposition home or self-care (01) | DRG 388 ==
LOC: EDH 09:31 → EDHIP 12:41 → 2AH 20:38 → 3DH 06-22 05:31
PROVIDERS: ADMIT Internal Medicine; ATTEND Internal Medicine
PROC: 0D9670Z Drainage of Stomach with Drainage Device, Via Natural or Artificial Opening (ICD-10-PCS; principal; 2021-06-21)
PROC: 5A09357 Assistance with Respiratory Ventilation, Less than 24 Consecutive Hours, Continuous Positive Airway Pressure (ICD-10-PCS; 2021-06-26)
PROC: 0W993ZZ Drainage of Right Pleural Cavity, Percutaneous Approach (ICD-10-PCS; 2021-06-27)
DX: K56.609 Unspecified intestinal obstruction, unspecified as to partial versus complete obstruction (principal); E43 Unspecified severe protein-calorie malnutrition; J94.8 Other specified pleural conditions; C85.90 Non-Hodgkin lymphoma, unspecified, unspecified site; N18.30 Chronic kidney disease, stage 3 unspecified; I12.9 Hypertensive chronic kidney disease with stage 1 through stage 4 chronic kidney disease, or unspecified chronic kidney disease; Z68.23 Body mass index [BMI] 23.0-23.9, adult; I27.20 Pulmonary hypertension, unspecified; Z20.822 Contact with and (suspected) exposure to COVID-19; G62.9 Polyneuropathy, unspecified; I07.1 Rheumatic tricuspid insufficiency; Z90.5 Acquired absence of kidney; Z88.8 Allergy status to other drugs, medicaments and biological substances; Z85.79 Personal history of other malignant neoplasms of lymphoid, hematopoietic and related tissues; Z80.9 Family history of malignant neoplasm, unspecified; Z82.49 Family history of ischemic heart disease and other diseases of the circulatory system
CPT/HCPCS: 36415; 71045; 71046; 74018; 74021; 74176; 78582; 80048; 80053; 81001; 82042; 82945; 83605; 83615; 83690; 83735; 83880; 83986; 84100; 84145; 84157; 85025; 85610; 85730; 87071; 87088; 87205; 87635; 89051; 93306; 93970; 93971; A9540; A9558; C9113; G0378; J0360; J1885; J1940; J2270; J2405; J2543; J3490; J7030

== ENCOUNTER 2022-05-10 13:43 | Inpatient (IN) | payer BC, MEDICARE ==
[~2022-05-10] VITALS: Ht 182.9 cm; Wt 80.6 kg
[~2022-05-10 13:43] MED LIST changes: +HYDR-4153 PO; -HYDR-4154 PO; +LACT10SO9 PO; -LORA2ORA5 PO; +POTA-200 PO; +TEST100V11 IM; +TORS20TA4 PO
[2022-05-10 14:41] LABS: BASOPHILS % (AUTO) 0.4 % (0.0-5.0); EOSINOPHILS % (AUTO) 0.5 % (0.0-8.0); HEMATOCRIT 38.1 % (42-54); LYMPHOCYTES % (AUTO) 3.4 % (21.0-51.0); MEAN CORPUSCULAR HEMOGLOBIN 29.2 pg (27.0-33.0); MEAN CORPUSCULAR HGB CONC 32.8 g/dL (32.0-36.0); MONOCYTES % (AUTO) 19.9 % (3.0-13.0); NEUTROPHILS % (AUTO) 74.7 % (40.0-77.0); PLATELET COUNT (AUTO) 335 K/uL (130-400); RED BLOOD CELL COUNT(AUTO) 4.28 MIL/uL (4.50-6.20); RED CELL DISTRIBUTION WIDTH 14.8 % (11.0-15.5); WHITE BLOOD COUNT (AUTO) 7.6 K/uL (4.8-10.8)
[2022-05-10 14:46] LABS: CREATININE 3.1 mg/dL (0.5-1.5); POTASSIUM 4.1 mmol/L (3.5-5.1)
[2022-05-10 14:56] LABS: ALBUMIN 1.9 g/dL (3.5-5.0); TOTAL PROTEIN, SERUM 6.6 g/dL (6.0-8.3)
[2022-05-10 15:07] LABS: APPEARANCE,URINE CLEAR (CLEAR); BILIRUBIN,URINE NEGATIVE (NEGATIVE); COLOR,URINE YELLOW (YELLOW); GLUCOSE, URINE (UA) NEGATIVE (NEGATIVE); KETONES,URINE NEGATIVE (NEGATIVE); LEUKOCYTE ESTERASE ,URINE NEGATIVE Leu/uL (NEGATIVE); NITRATE,URINE NEGATIVE (NEGATIVE); PROTEIN,URINE 200 mg/dL (NEGATIVE); UROBILINOGEN,URINE 3 mg/dL (0.2-1.0)
[2022-05-10 15:17] LABS: MAGNESIUM 2.2 mg/dL (1.80-2.40)
[2022-05-10 15:22] LABS: B-TYPE NATRIURETIC PEPTIDE 1280 pg/mL (0-100)
[2022-05-10] MEDS: FUROSEMIDE 40MG VIAL IV ONE ×2 (15:39→16:00)
[2022-05-10] MEDS ORDERED: CEFTRIAXONE 1G VIAL IVP ONE (16:30)
[2022-05-10] MEDS: DOXYCYCLINE HYCLATE 100 MG TABLET PO SCH (16:48)
[2022-05-10] MEDS ORDERED: ACETAMINOPHEN 500 MG TABLET PO ONE (17:00)
[2022-05-10] MEDS ORDERED: TEMAZEPAM 15 MG CAPSULE PO PRN (17:30)
[2022-05-10] MEDS ORDERED: ONDANSETRON 4MG INJ IVP PRN (17:30)
[2022-05-10] MEDS ORDERED: LACTULOSE 20 GM/30 ML UDCUP PO PRN (17:30)
[2022-05-10] MEDS ORDERED: ALBUTEROL 0.083% 2.5 MG/3 ML INH IH PRN (17:30)
[2022-05-10] MEDS ORDERED: LABETALOL 20MG SYG IV PRN (17:30)
[2022-05-10] MEDS ORDERED: HYDRALAZINE 20MG/ML VIAL IV PRN (17:30)
[2022-05-10] MEDS ORDERED: ACETAMINOPHEN 650 MG SUPPOSITORY RC PRN (17:30)
[2022-05-10] MEDS ORDERED: CLONIDINE HCL 0.1 MG TABLET PO PRN (17:30)
[2022-05-10] MEDS ORDERED: ACETAMINOPHEN 325 MG TAB PO PRN (17:30)
[2022-05-10] MEDS: IPRATROPIUM 0.5 MG/2.5 ML INH IH SCH ×2 (18:26→23:43)
[2022-05-10 18:53] LABS: INR 1.08 (0.85-1.15); PROTHROMBIN TIME 11.7 SEC (9.6-11.6)
[2022-05-10 18:54] LABS: PARTIAL THROMBOPLASTIN TIME 26.5 SEC (26.3-35.5)
[2022-05-10] MEDS: FUROSEMIDE 40MG VIAL IV SCH (20:02)
[2022-05-10] MEDS: HEPARIN 5,000 UNIT VIAL SQ SCH (20:38)
[2022-05-10] MEDS: DOXYCYCLINE 100MG+NS 250ML IV SCH (21:10)
[2022-05-10 22:20] VITALS: BP 150/75
[2022-05-10] MEDS: HYDROCODONE/ACETAMINOPHEN 5/325 MG TAB PO PRN (23:09)
[2022-05-11 04:00] VITALS: BP 144/71
[2022-05-11] MEDS: HEPARIN 5,000 UNIT VIAL SQ SCH ×2 (04:54→17:17)
[2022-05-11] MEDS: FUROSEMIDE 40MG VIAL IV SCH ×2 (04:55→17:16)
[2022-05-11 05:17] LABS: BASOPHILS % (AUTO) 0.4 % (0.0-5.0); HEMATOCRIT 37.6 % (42-54); LYMPHOCYTES % (AUTO) 3.4 % (21.0-51.0); MEAN CORPUSCULAR HEMOGLOBIN 29.3 pg (27.0-33.0); MEAN CORPUSCULAR HGB CONC 33.2 g/dL (32.0-36.0); MEAN CORPUSCULAR VOLUME 88.3 fL (79-99); MONOCYTES % (AUTO) 24.9 % (3.0-13.0); NEUTROPHILS % (AUTO) 69.1 % (40.0-77.0); PLATELET COUNT (AUTO) 338 K/uL (130-400); RED BLOOD CELL COUNT(AUTO) 4.26 MIL/uL (4.50-6.20); RED CELL DISTRIBUTION WIDTH 14.9 % (11.0-15.5); WHITE BLOOD COUNT (AUTO) 6.8 K/uL (4.8-10.8)
[2022-05-11 05:36] LABS: CREATININE 2.6 mg/dL (0.5-1.5); MAGNESIUM 2.1 mg/dL (1.80-2.40); POTASSIUM 4.3 mmol/L (3.5-5.1)
[2022-05-11 06:08] LABS: B-TYPE NATRIURETIC PEPTIDE 902 pg/mL (0-100)
[2022-05-11] MEDS: IPRATROPIUM 0.5 MG/2.5 ML INH IH SCH ×4 (07:13→23:24)
[2022-05-11 07:55] VITALS: BP 147/84
[2022-05-11] MEDS ORDERED: 0.9% NACL 250ML 250 ML ONE (08:01)
[2022-05-11] MEDS: HYDROCODONE/ACETAMINOPHEN 5/325 MG TAB PO PRN ×2 (08:25→20:37)
[2022-05-11] MEDS: FAMOTIDINE 20MG TAB PO SCH (08:25)
[2022-05-11] MEDS: DOXYCYCLINE 100MG+NS 250ML IV SCH ×2 (08:25→20:36)
[2022-05-11] MEDS: CEFTRIAXONE 1G VIAL IVP SCH (08:25)
[2022-05-11 11:02] VITALS: BP 141/71
[2022-05-11 15:33] VITALS: BP 139/65
[2022-05-11] MEDS: DOXYCYCLINE HYCLATE 100 MG TABLET PO SCH (17:16)
[2022-05-11 20:24] VITALS: BP 140/71
[2022-05-11 23:24] VITALS: BP 131/82
[2022-05-12 03:51] VITALS: BP 135/67
[2022-05-12 04:58] LABS: BASOPHILS % (AUTO) 0.6 % (0.0-5.0); EOSINOPHILS % (AUTO) 1.7 % (0.0-8.0); HEMATOCRIT 35.9 % (42-54); LYMPHOCYTES % (AUTO) 4.4 % (21.0-51.0); MEAN CORPUSCULAR HGB CONC 32.9 g/dL (32.0-36.0); MEAN CORPUSCULAR VOLUME 88.2 fL (79-99); MONOCYTES % (AUTO) 28.8 % (3.0-13.0); PLATELET COUNT (AUTO) 362 K/uL (130-400); RED BLOOD CELL COUNT(AUTO) 4.07 MIL/uL (4.50-6.20); RED CELL DISTRIBUTION WIDTH 14.9 % (11.0-15.5); WHITE BLOOD COUNT (AUTO) 6.3 K/uL (4.8-10.8)
[2022-05-12 05:28] LABS: CREATININE 2.2 mg/dL (0.5-1.5); POTASSIUM 3.7 mmol/L (3.5-5.1)
[2022-05-12 05:31] LABS: B-TYPE NATRIURETIC PEPTIDE 1090 pg/mL (0-100)
[2022-05-12] MEDS: FUROSEMIDE 40MG VIAL IV SCH ×2 (05:46→18:06)
[2022-05-12] MEDS: HEPARIN 5,000 UNIT VIAL SQ SCH ×2 (05:47→18:15)
[2022-05-12] MEDS: IPRATROPIUM 0.5 MG/2.5 ML INH IH SCH ×4 (06:54→23:30)
[2022-05-12 07:53] VITALS: BP 153/67
[2022-05-12] MEDS ORDERED: 0.9% NACL 250ML 250 ML ONE (08:28)
[2022-05-12] MEDS: FAMOTIDINE 20MG TAB PO SCH (08:36)
[2022-05-12] MEDS: CEFTRIAXONE 1G VIAL IVP SCH (08:37)
[2022-05-12] MEDS: DOXYCYCLINE 100MG+NS 250ML IV SCH ×2 (08:37→20:39)
[2022-05-12] MEDS: HYDROCODONE/ACETAMINOPHEN 5/325 MG TAB PO PRN ×2 (08:37→18:18)
[2022-05-12 10:23] VITALS: BP 139/71
[2022-05-12 15:25] VITALS: BP 153/76
[2022-05-12 19:59] VITALS: BP 136/63
[2022-05-13] VITALS: BP 146/61
[2022-05-13] MEDS: HYDROCODONE/ACETAMINOPHEN 5/325 MG TAB PO PRN (00:58)
[2022-05-13 04:00] VITALS: BP 143/75
[2022-05-13 05:11] LABS: BASOPHILS % (AUTO) 0.8 % (0.0-5.0); EOSINOPHILS % (AUTO) 1.7 % (0.0-8.0); HEMATOCRIT 34.2 % (42-54); LYMPHOCYTES % (AUTO) 4.4 % (21.0-51.0); MEAN CORPUSCULAR HEMOGLOBIN 29.7 pg (27.0-33.0); MEAN CORPUSCULAR HGB CONC 33.6 g/dL (32.0-36.0); MEAN CORPUSCULAR VOLUME 88.4 fL (79-99); MONOCYTES % (AUTO) 24.7 % (3.0-13.0); PLATELET COUNT (AUTO) 374 K/uL (130-400); RED BLOOD CELL COUNT(AUTO) 3.87 MIL/uL (4.50-6.20); RED CELL DISTRIBUTION WIDTH 14.8 % (11.0-15.5); WHITE BLOOD COUNT (AUTO) 7.1 K/uL (4.8-10.8)
[2022-05-13] MEDS: HEPARIN 5,000 UNIT VIAL SQ SCH ×2 (05:20→17:47)
[2022-05-13 05:30] LABS: CREATININE 2.2 mg/dL (0.5-1.5); MAGNESIUM 1.6 mg/dL (1.80-2.40); POTASSIUM 3.5 mmol/L (3.5-5.1)
[2022-05-13 05:39] LABS: B-TYPE NATRIURETIC PEPTIDE 880 pg/mL (0-100)
[2022-05-13] MEDS: IPRATROPIUM 0.5 MG/2.5 ML INH IH SCH ×4 (07:03→23:34)
[2022-05-13 07:30] VITALS: BP 145/68
[2022-05-13] MEDS ORDERED: 0.9% NACL 250ML 250 ML ONE ×2 (08:05→19:57)
[2022-05-13] MEDS: CEFTRIAXONE 1G VIAL IVP SCH (08:45)
[2022-05-13] MEDS: DOXYCYCLINE 100MG+NS 250ML IV SCH ×2 (08:46→20:08)
[2022-05-13] MEDS: FUROSEMIDE 40MG VIAL IV SCH (08:46)
[2022-05-13] MEDS: FAMOTIDINE 20MG TAB PO SCH (08:46)
[2022-05-13 11:30] VITALS: BP 138/63
[2022-05-13 16:30] VITALS: BP 103/57
[2022-05-13 20:00] VITALS: BP 158/70
[2022-05-14] VITALS: BP 150/74
[2022-05-14 04:00] VITALS: BP 143/72
[2022-05-14] MEDS: HEPARIN 5,000 UNIT VIAL SQ SCH (04:53)
[2022-05-14 05:54] LABS: BASOPHILS % (AUTO) 0.6 % (0.0-5.0); EOSINOPHILS % (AUTO) 1.5 % (0.0-8.0); HEMATOCRIT 34.5 % (42-54); LYMPHOCYTES % (AUTO) 6.4 % (21.0-51.0); MEAN CORPUSCULAR HEMOGLOBIN 29.1 pg (27.0-33.0); MONOCYTES % (AUTO) 25.6 % (3.0-13.0); PLATELET COUNT (AUTO) 405 K/uL (130-400); RED BLOOD CELL COUNT(AUTO) 3.92 MIL/uL (4.50-6.20); RED CELL DISTRIBUTION WIDTH 14.7 % (11.0-15.5)
[2022-05-14 06:09] LABS: CREATININE 2.1 mg/dL (0.5-1.5); POTASSIUM 3.3 mmol/L (3.5-5.1)
[2022-05-14] MEDS: IPRATROPIUM 0.5 MG/2.5 ML INH IH SCH ×2 (07:06→11:51)
[2022-05-14 08:25] VITALS: BP 161/83
[2022-05-14] MEDS: FUROSEMIDE 40MG VIAL IV SCH (09:29)
[2022-05-14] MEDS: CEFTRIAXONE 1G VIAL IVP SCH (09:29)
[2022-05-14] MEDS: DOXYCYCLINE 100MG+NS 250ML IV SCH (09:29)
[2022-05-14] MEDS: FAMOTIDINE 20MG TAB PO SCH (09:29)
[2022-05-14] MEDS ORDERED: DOXY100C5 PO (10:02)
[2022-05-16 16:10] LABS: TYPHUS FEVER IGG <1:64 (Neg:<1:64); TYPHUS FEVER IGM <1:64 (Neg:<1:64)
== END 2022-05-14 12:30 | disposition home or self-care (01) | DRG 871 ==
LOC: EDH 13:43 → OBSVTOIN 17:25 → EDHIP 17:25 → 3CH 22:30
PROVIDERS: ADMIT Internal Medicine; ATTEND Internal Medicine
DX: A41.9 Sepsis, unspecified organism (principal); J96.01 Acute respiratory failure with hypoxia; N17.0 Acute kidney failure with tubular necrosis; D84.9 Immunodeficiency, unspecified; E46 Unspecified protein-calorie malnutrition; I13.0 Hypertensive heart and chronic kidney disease with heart failure and stage 1 through stage 4 chronic kidney disease, or unspecified chronic kidney disease; I50.30 Unspecified diastolic (congestive) heart failure; I42.9 Cardiomyopathy, unspecified; R18.8 Other ascites; Z20.822 Contact with and (suspected) exposure to COVID-19; D70.9 Neutropenia, unspecified; G43.909 Migraine, unspecified, not intractable, without status migrainosus; G71.00 Muscular dystrophy, unspecified; N18.9 Chronic kidney disease, unspecified; G62.9 Polyneuropathy, unspecified; D64.9 Anemia, unspecified; Z85.79 Personal history of other malignant neoplasms of lymphoid, hematopoietic and related tissues; Z85.72 Personal history of non-Hodgkin lymphomas; Z90.5 Acquired absence of kidney; Z68.24 Body mass index [BMI] 24.0-24.9, adult
CPT/HCPCS: 36415; 71045; 76700; 80048; 80053; 81001; 82550; 83605; 83735; 83880; 84100; 84145; 84484; 85025; 85610; 85730; 86140; 86757; 87040; 87635; 87804; 93005; 93306; 93356; 94640; 94664; C9803; G0378; J0696; J1644; J1940; J3490; J7050

== ENCOUNTER → 2023-03-17 | Outpatient (CLI) | payer MEDICARE ==
[~2023-03-17] MED LIST changes: +DOXY100C5 PO
== END | disposition home or self-care (01) ==
LOC: SHCH 08:40
PROVIDERS: ATTEND Internal Medicine Cardiovascular Disease
DX: I08.8 Other rheumatic multiple valve diseases (principal); I45.10 Unspecified right bundle-branch block
CPT/HCPCS: 93306

== ENCOUNTER → 2024-10-21 | Outpatient (CLI) | payer MEDICARE ==
[~2024-10-21] MED LIST changes: -DOXY100C5 PO; +FOLI1 PO; +GABA-529 PO; -HYDR-4153 PO; +HYDR100T15 PO; -LACT10SO9 PO; +LEVO750T68 PO; -POTA-200 PO; +TADA5TAB14 PO; -TEST100V11 IM; +TEST200V21 IM
--- NOTE | 2024-10-21 10:45 | HMCIMG ---
CT NONCONTRAST CHEST Comparison Study: none History: PNEUMONIA Technique: Helical CT of the chest without IV contrast at 5 mm collimation. Coronal and sagittal reformations also done. CT Dose Index (CTDI): 2.38 mGy Dose Length Product (DLP): 94.8 total mGy-cm Findings: The airway is intact. The trachea and major bronchi are unremarkable. The chest exam shows no pulmonary nodules or masses. There are bilateral rpkwb-sd-safbfuhw pleural effusions and there is evidence of bilateral subpleural lower lobe rounded atelectasis, with possible superimposed acute pneumonia particularly involving the right lower lobe. Follow-up is advised to confirm complete radiographic resolution. There is no pneumothorax. There is no evidence of pneumomediastinum. The nonenhanced exam of the kulwinder and mediastinum is unremarkable. No evidence of hilar enlargement is seen. The aorta shows no aneurysmal dilatation or significant atheromatous calcification. No significant brachiocephalic vascular abnormalities are seen. The heart is unremarkable. It is not enlarged. No significant coronary arterial calcifications are seen. There is no pericardial effusion. The rib cage appears unremarkable. The soft tissues of the chest wall are unremarkable. The dorsal spine shows no significant abnormalities. IMPRESSION: There are bilateral gstzh-dn-xrgedeqw pleural effusions and there is evidence of bilateral subpleural lower lobe rounded atelectasis, with possible superimposed acute pneumonia particularly involving the right lower lobe. Follow-up is advised to confirm complete radiographic resolution. This study was performed using dose reduction techniques to include automated exposure control and/or adjustment of the mA and/or kV according to patient size.
== END | disposition home or self-care (01) ==
LOC: RAH 09:33
PROVIDERS: ATTEND Internal Medicine Critical Care Medicine
DX: J98.11 Atelectasis (principal); J90 Pleural effusion, not elsewhere classified; J18.9 Pneumonia, unspecified organism
CPT/HCPCS: 71250